=== PATIENT | female | born 1955 | race Caucasian/White ===

== ENCOUNTER 2024-03-26 08:59 | Outpatient (CLI) | payer BC, SELFPAY ==
--- NOTE | ~2024-03-26 | MR_ITS ---
EXAMINATION: MR ankle LT wo con DATE: 03/26/2024 09:43 INDICATION: Left heel pain. Achilles tendon tear. TECHNIQUE: Magnetic resonance imaging (MRI) of the left ankle was performed without intravenous contr ast. Sequences included sagittal PD-weighted FS FSE, sagittal PD-weighted FSE, coronal PD-weighted FS FSE, coronal PD-weighted FSE, axial PD-weighted FS FSE, and axial PD-weighted FSE. COMPARISON: None. FINDINGS: Medial ankle ligaments: The superficial and deep components of the deltoid ligament are intact. Lateral ankle ligaments: There are changes of prior sprains of anterior talofibular ligament, calcaneofibular ligament, and an terior tibiofibular ligament characterized by thickening and increased signal intensity. Posterior ta lofibular ligament and posterior tibiofibular ligament are normal. Tendons: There is mild tenosynovitis of posterior tibial tendon and flexor digitorum longus. The anterior ankl e tendons are normal. Peroneus brevis tendon is normal. There is a longitudinal split tear of peroneu s longus tendon. There is Achilles tendinopathy. There is a complete tear of Achilles tendon centered 4.2 cm proximal to the distal insertion. The gap between the completely torn tendon ends measures 8 mm. The gap between the partially torn aspects of the tendon ends measures 4.2 cm. Plantar fascia: There is thickening and increased signal involving the central and lateral bands of the plantar fasci a, consistent with fasciitis. There is an enthesophyte at the calcaneal attachment. Bones/other: There is mild midfoot osteoarthritis. Fluid: There are small ankle and subtalar joint effusions. IMPRESSION: 1. Complete tear of Achilles tendon. Reviewed, dictated and finalized at location A.
== END 2024-03-26 09:00 ==
LOC: GOSHIMG 09:01
PROVIDERS: PCP Physician Assistant; Referring Provider Family Medicine; Visit Provider Orthopaedic Surgery
DX: M79.672 Pain in left foot (principal); S86.012A Strain of left Achilles tendon, initial encounter
CPT/HCPCS: 73721